=== PATIENT | female | born 1990 | race Two or more races ===

== ENCOUNTER 2018-11-29 10:30 | Inpatient (IN) | payer OTHER ==
[~2018-11-29] VITALS: Ht 152.4 cm; Wt 94.3 kg
[~2018-11-29 10:30] MED LIST: PEPCID AC20 MG PO
[2018-11-30] MEDS ORDERED: ZOFRAN8 MG PO (07:46)
[2018-11-30] MEDS ORDERED: BUTALB-ACETAMI1 EAC2 PO (07:46)
[2018-12-04] MEDS ORDERED: BUTALB-ACETAMI1 EAC2 PO (07:07)
[2018-12-04] MEDS ORDERED: DRAMAMINE25 MG PO (07:07)
[2018-12-04] MEDS ORDERED: SOD CITRATE-CI473 ML PO (07:07)
[2018-12-04] MEDS ORDERED: METOCLOPRAMIDE10 MG PO (07:07)
== END 2018-12-04 10:03 | DRG 833 ==
LOC: OBS/DEL 10:30 → LDR 11-30 09:49 → OBS/DEL 11-30 09:49 → OB/GYN 11-30 09:49
PROVIDERS: ADMIT Obstetrics & Gynecology
PROC: 4A1HXCZ Monitoring of Products of Conception, Cardiac Rate, External Approach (ICD-10-PCS; principal; 2018-11-30)
DX: O26.892 Other specified pregnancy related conditions, second trimester (principal); K29.60 Other gastritis without bleeding; G43.809 Other migraine, not intractable, without status migrainosus

== ENCOUNTER 2019-03-27 13:39 | Inpatient (IN) | payer OTHER ==
[~2019-03-27] VITALS: Ht 152.4 cm; Wt 101.6 kg
[~2019-03-27 13:39] MED LIST changes: +BUTALB-ACETAMI1 EAC2 PO; +DRAMAMINE25 MG PO; +IRON325 MG PO; +METOCLOPRAMIDE10 MG PO; +PRENATABS RX T1 EACH PO; +SOD CITRATE-CI473 ML PO; +ZOFRAN8 MG PO
[2019-03-27] MEDS ORDERED: ASPIR 8181 MG PO (14:54)
[2019-03-27] MEDS ORDERED: HUMULIN N100 UNIT/2 SUBCUTANEO (14:56)
[2019-03-27] MEDS ORDERED: HUMULIN R500 UNIT/2 SUBCUTANEO ×2 (14:57→14:59)
== END 2019-04-03 13:35 | disposition home or self-care (01) | DRG 788 ==
LOC: OB/GYN 13:39 → LDR 13:39 → OB/GYN 03-28 08:29
PROVIDERS: ADMIT Obstetrics & Gynecology
PROC: 4A1HXCZ Monitoring of Products of Conception, Cardiac Rate, External Approach (ICD-10-PCS; 2019-03-27)
PROC: 3E033VJ Introduction of Other Hormone into Peripheral Vein, Percutaneous Approach (ICD-10-PCS; 2019-03-29)
PROC: 3E0P7VZ Introduction of Hormone into Female Reproductive, Via Natural or Artificial Opening (ICD-10-PCS; 2019-03-29)
PROC: 10D00Z1 Extraction of Products of Conception, Low, Open Approach (ICD-10-PCS; principal; 2019-03-31 16:00)
DX: O82 Encounter for cesarean delivery without indication (principal); O64.8XX0 Obstructed labor due to other malposition and malpresentation, not applicable or unspecified; Z3A.36 36 weeks gestation of pregnancy; Z37.0 Single live birth